=== PATIENT | male | born 1950 | race Caucasian/White ===

== ENCOUNTER 2016-10-11 09:27 | Emergency (ER) | payer BC ==
[2016-10-11 09:33] VITALS: BP 137/92; PULSE 78; TEMP 97.3; BMI 30.4
--- NOTE | 2016-10-11 10:16 | PDOC ---
History of Present Illness - General Chief Complaint: Pain, Acute Stated Complaint: left head pain Time Seen by Provider: 10/11/16 09:51 - History of Present Illness Initial Comments: 10/11/16 12:00 Chief complaint: Pain left occiput History of present illness: Sharp lancinating momentary recurrent pains left occipital region for 2 days. Review of systems: No injuries. No chest pain, shortness of breath, abdominal pain, nausea, vomiting, diarrhea, visual or other focal neurologic symptoms, unsteadiness of gait. No headache, earache, tinnitus, decreased hearing, sore throat, URI symptoms, rash. Admits a history of TMJ, and continued involuntary clenching of his face and jaw due to stress. Remainder systems reviewed and found to be negative Past medical history: Lymes disease, treated. Gout. Otherwise negative including cardiac disease, neurologic disease, or diabetes. Social history: Computer enterprise systems manager, no tobacco, social alcohol, no alcohol abuse, no other drugs. Fully active and without disability. Family history: Reviewed and noncontributory including early coronary artery disease, metabolic disease including diabetes, neurologic disease including aneurysm, and cancer Physical exam: Alert oriented 3 well-developed well-nourished no acute distress cheerful and cooperative Afebrile, vital signs normal Head atraumatic. There is no tenderness of the scalp and no rash that is apparent PERRLA 4 mm, fundi benign with sharp disc margins and good central venous pulsations. No hemorrhages or exudates. No A-V nicking. ENT clear Neck supple without bruit mass or nodes Chest clear CV regular without murmur rub or gallop Abdomen benign Neurological C2 to 12 intact. Hearing appears fine. No focal sensory or motor deficits. Strength full and symmetric. Gait stable and unimpaired. Cerebellum normal Impression: Occipital neuralgia, probably related to clenching of the jaw and facial muscles. Possible early zoster. Less likely central nervous system disease Plan: Anti-inflammatories, local measures such as massage and heat, and follow- up with neurologist if symptoms persist. Discussed the treatment plan with the patient and his , who is a nurse. They agree with the immediate measures and to follow-up if there is no improvement to investigate the possibility of more serious neurological l problem. Past History - Past Medical History Allergies/Adverse Reactions: Allergies Allergy/AdvReac Type Severity Reaction Status Date / Time No Known Allergies Allergy Verified 10/11/16 09:30 Home Medications: Ambulatory Orders NK [No Known Home Medication] 10/11/16 Other medical history: denies - Psycho/Social/Smoking Cessation Hx Anxiety: No Suicidal Ideation: No Smoking History: Former smoker Have you smoked in the past 12 months: No If you are a former smoker, when did you quit?: 10 YEARSA GO Information on smoking cessation initiated: No Hx Alcohol Use: Yes Drug/Substance Use Hx: No Substance Use Type: Alcohol *Physical Exam - Vital Signs Last Vital Signs Temp Pulse Resp BP Pulse Ox 97.3 F L 78 16 137/92 100 10/11/16 09:27 10/11/16 09:27 10/11/16 09:27 10/11/16 09:27 10/11/16 09:27 *DC/Admit/Observation/Transfer Diagnosis at time of Disposition: Occipital neuralgia of left side - Discharge Dispostion Condition at time of disposition: Stable Admit: No - Referrals Referrals: Obie Rajput DO [Staff Physician] - 1 week - Patient Instructions Printed Discharge Instructions: DI for Occipital Neuralgia Additional Instructions: Warm moist heat, relaxation, and massage may be helpful. Observed the skin of the scalp, under the hair, and if the rash develops in the area you may have shingles. In that case, see your doctor immediately. If no improvement after one week, consider evaluation by a neurologist. Take Advil or Aleve 2-3 times per day for the next 4-5 days to resolve any inflammation that may be present.
[2016-10-11] MEDS ORDERED: IBUPROFEN 600 MG TABLET (FP) PO ONE ×2 (10:25→10:53)
== END 2016-10-11 10:45 | disposition home or self-care (01) ==
LOC: FER 09:27
DX: M54.81 Occipital neuralgia (principal)
CPT/HCPCS: 99282-25

== ENCOUNTER 2020-10-24 02:59 | Emergency (ER) | payer BC ==
[2020-10-24 03:11] VITALS: BP 136/98; PULSE 89; TEMP 99.9; BMI 31.8
[2020-10-24] MEDS ORDERED: SODIUM CHLORIDE 1,000 ML IV STA (03:25)
[2020-10-24] MEDS ORDERED: ACETAMINOPHEN 1000 MG/100 ML VIAL (NON FORMULARY) IVPB ONE (03:25)
[2020-10-24] MEDS ORDERED: ACETAMINOPHEN INJECTION 100 ML IVPB ONE (03:29)
[2020-10-24 04:38] LABS: BASO % 0.6 % (0-2.0); EOS % 0.3 % (0-4.5); HEMATOCRIT 46.3 % (35.4-49); HEMOGLOBIN 16.1 GM/dL (11.7-16.9); LYMPH % 25.2 % (8-40); MCH 31.5 pg (25.7-33.7); MCHC 34.7 g/dl (32.0-35.9); MEAN CELL VOLUME 90.6 fl (80-96); MEAN PLT VOLUME 10.4 fl (7.5-11.1); MONO % 15.5 % (3.8-10.2); NEUT % 58.4 % (42.8-82.8); PLATELET COUNT 139 10^3/uL (134-434); RBC 5.11 M/mm3 (4.00-5.60); RDW 13.9 % (11.9-15.9); URINE APPEARANCE CLEAR; URINE BILIRUBIN NEGATIVE (NEGATIVE); URINE COLOR DK YELLOW; URINE GLUCOSE (UA) NEGATIVE (NEGATIVE); URINE KETONE TRACE (NEGATIVE); URINE LEUK ESTERASE NEGATIVE (NEGATIVE); URINE NITRITE NEGATIVE (NEGATIVE); URINE PROTEIN TRACE (NEGATIVE); WHITE BLOOD COUNT 5.3 K/mm3 (4.0-10.0)
[2020-10-24 04:58] LABS: CALCIUM 8.6 mg/dL (8.5-10.1)
[2020-10-24 04:59] LABS: BLOOD UREA NITROGEN 12.1 mg/dL (7-18); MAGNESIUM 2.2 mg/dL (1.8-2.4)
[2020-10-24 05:04] LABS: BILIRUBIN,TOTAL 0.4 mg/dL (0.2-1); TOT PROT 7.1 g/dl (6.4-8.2)
== END 2020-10-24 05:31 | disposition home or self-care (01) ==
LOC: FER 02:59
PROC: 3E033GC Introduction of Other Therapeutic Substance into Peripheral Vein, Percutaneous Approach (ICD-10-PCS; principal; 2020-10-24)
DX: R19.7 Diarrhea, unspecified (principal); M79.10 Myalgia, unspecified site; R68.83 Chills (without fever); R63.0 Anorexia
CPT/HCPCS: 36415; 80053; 81003; 82550; 83735; 84484; 85025; 99284-25; C9803; J0131; U0003; U0005